=== PATIENT | male | born 1980 | race Caucasian/White ===

== ENCOUNTER → 2017-11-24 | Outpatient (CLI) | payer MEDICAID ==
[~2017-11-24] VITALS: Ht 177.8 cm; Wt 83.0 kg
[~2017-11-24] MED LIST: HYDR-565 PO; NO HOME MEDS
[2017-11-24 14:17] VITALS: BP 137/80
== END | disposition home or self-care (01) ==
LOC: ORTHO 13:55
PROVIDERS: ATTEND Nurse Practitioner Family
DX: S52.591A Other fractures of lower end of right radius, initial encounter for closed fracture (principal); S52.611A Displaced fracture of right ulna styloid process, initial encounter for closed fracture
CPT/HCPCS: 99213; A4590

== ENCOUNTER 2017-12-12 13:54 | Outpatient (CLI) | payer MEDICAID ==
[~2017-12-12] VITALS: Ht 177.8 cm; Wt 78.0 kg
[2017-12-12 13:48] VITALS: BP 131/73
[~2017-12-12 13:54] MED LIST changes: -HYDR-565 PO
== END 2017-12-12 15:13 | disposition home or self-care (01) ==
LOC: ORTHO 13:54
PROVIDERS: ATTEND Nurse Practitioner Family
DX: S52.501G Unspecified fracture of the lower end of right radius, subsequent encounter for closed fracture with delayed healing (principal); S52.611G Displaced fracture of right ulna styloid process, subsequent encounter for closed fracture with delayed healing; F17.210 Nicotine dependence, cigarettes, uncomplicated; Z56.0 Unemployment, unspecified; Z59.0 Homelessness; W01.0XXD Fall on same level from slipping, tripping and stumbling without subsequent striking against object, subsequent encounter
CPT/HCPCS: 73110; 99213; A4590

== ENCOUNTER 2017-12-28 10:00 | Outpatient (CLI) | payer MEDICAID ==
[2017-12-28 09:59] VITALS: BP 108/78
== END 2017-12-28 10:34 | disposition home or self-care (01) ==
LOC: ORTHO 10:00
PROVIDERS: ATTEND Nurse Practitioner Family
DX: S52.591G Other fractures of lower end of right radius, subsequent encounter for closed fracture with delayed healing (principal); S52.611G Displaced fracture of right ulna styloid process, subsequent encounter for closed fracture with delayed healing; F17.210 Nicotine dependence, cigarettes, uncomplicated; Z56.0 Unemployment, unspecified; Z59.0 Homelessness; W01.0XXD Fall on same level from slipping, tripping and stumbling without subsequent striking against object, subsequent encounter
CPT/HCPCS: 73100

== ENCOUNTER 2018-02-06 14:07 | Outpatient (CLI) | payer MEDICAID ==
[2018-02-06 14:12] VITALS: BP 107/77
== END 2018-02-06 14:40 | disposition home or self-care (01) ==
LOC: ORTHO 14:07
PROVIDERS: ATTEND Nurse Practitioner Family
DX: S52.591D Other fractures of lower end of right radius, subsequent encounter for closed fracture with routine healing (principal); S52.611D Displaced fracture of right ulna styloid process, subsequent encounter for closed fracture with routine healing; F17.210 Nicotine dependence, cigarettes, uncomplicated; Z56.0 Unemployment, unspecified; Z59.0 Homelessness; W01.0XXD Fall on same level from slipping, tripping and stumbling without subsequent striking against object, subsequent encounter
CPT/HCPCS: 73100; 99213

== ENCOUNTER 2024-07-20 13:33 | Emergency (ER) | payer MEDICAID ==
[~2024-07-20] VITALS: Ht 182.9 cm; Wt 84.9 kg
[2024-07-20 13:50] VITALS: BP 128/73; PULSE 97; RESP 18; O2SAT 96
--- NOTE | 2024-07-20 14:00 | Physician Documentation ---
HPI ~ General Chief Complaint: Tooth Problem Stated Complaint: TOOTH ABSCESS Time Seen by MD: 13:55 Primary Medical Doctor: NONE History of Present Illness HPI Comment Patient is seen today with complaints of dental pain of his left lower incisor. Patient complains of swelling. Patient states symptoms started 3-4 days ago. Patient admits to multiple dental fractures and cavities and caries. Patient denies any fever or chills. Patient has no other concern or complaint at this t himanshu. Medication Reconciliation Allergies: Coded Allergies: No Known Allergies (Unverified , 05/25/10) Miscellaneous Medications Home Med List (No Home Medications), (Reported) Past Medical History Past Medical History: Extremity Fracture Past Surgical History: orthopedic surgeries Alcohol Use: None Drug Use: none Lives with: Spouse Lives In: Homeless Occupation: unemployed Review of Systems Constitutional: Denies: chills, fever, weakness Eyes: Denies: pain, blurred vision ENT: Denies: ear pain, nose pain, throat pain, mouth pain Respiratory: Denies: cough, shortness of breath Cardiovascular: Denies: chest pain, palpitations Gastrointestinal: Denies: abdominal pain, nausea, vomiting Genitourinary: Denies: burning, dysuria Male Genitalia: Denies: penile discharge, testicular pain Neurological: Denies: headache, dizziness Musculoskeletal: Denies: pain, swelling Integumentary: Denies: rash, lesions Allergic/Immunologic: Denies: hives, itching Hematologic/Lymphatic: Denies: no symptoms reported Psychiatric: Denies: depression, anxiety Physical Exam Vital Signs: Temperature: 98.3, Source: Temporal, Heart Rate: 97, Respiratory Rate: 18, BP: 128/73, Pulse Oximetry: 96, Weight: 84.900 Physical Exam General: Awake and Alert, no acute distress. HEENT: Patient on exam does have swelling of the lower gums on the left side as well as left lower jaw swelling. I do not appreciate any periapical abscess at this time. Conjunctiva pink, Sclera clear, Mucus Membranes moist. Neck: Supple without masses and tenderness. Resp: Unlabored. Lungs clear to auscultation bilaterally. Heart: Regular Rate and rhythm, normal S1 and S2 without murmur, rub or gallop. Extremities: No cyanosis,clubbing or edema. Skin: Warm and Dry. Progress Results/Orders Results/Orders Vital Signs 07/20/24 13:50 Temp 98.3 Pulse 97 Resp 18 B/P (MAP) 128/73 Pulse Ox 96 Medical Decision Making Findings Patient is seen today with complaints of dental pain of his left lower incisor. Patient complains of swelling. Patient states symptoms started 3-4 days ago. Patient admits to multiple dental fractures and cavities and caries. Patient denies any fever or chills. Patient has no other concern or complaint at this time. Patient given dose of ibuprofen 800 mg and Tylenol 975 mg by mouth in the ED today along with amoxicillin 1000 mg by mouth in the ED today. Prescriptions of the same medications were sent to patient's pharmacy. Patient will follow up with dentist as soon as possible. Return to ED with any worsening, concerning or changing symptoms. Departure Disposition: 01 HOME / SELF CARE / HOMELESS Impression: Primary Impression: Dental abscess Condition: Improved Discharge Instructions: Dental Abscess Additional Instructions: Patient given dose of ibuprofen 800 mg and Tylenol 975 mg by mouth in the ED today along with amoxicillin 1000 mg by mouth in the ED today. Prescriptions of the same medications were sent to patient's pharmacy. Patient will follow up with dentist as soon as possible. Return to ED with any worsening, concerning or changing symptoms. Referrals: NO PRIMARY CARE PROVIDER (PCP) Prescriptions Amoxicillin Trihydrate (Amoxicillin) 875 Mg Tablet 1 TAB PO Q12H for 10 Days, #20 TAB Prov: JOSE D ZIMMER 07/20/24 Acetaminophen (Tylenol Extra Strength) 500 Mg Tablet 2 TAB PO Q6H PRN PRN for pain or fever for 7 Days, #56 TAB Prov: JOSE D ZIMMER 07/20/24 Ibuprofen (Ibuprofen) 800 Mg Tablet 1 TAB PO Q8H for pain for 10 Days, #30 TAB 0 Refills Prov: JOSE D ZIMMER 07/20/24 Signature Scribe Signature: No scribe Attestation: No scribe JOSE D ZIMMER July 20, 2024 14:00
[2024-07-20] MEDS ORDERED: ACET-1025 PO (14:01)
[2024-07-20] MEDS ORDERED: IBUP-1986 PO (14:01)
[2024-07-20] MEDS ORDERED: AMOX875T10 PO (14:01)
[2024-07-20] MEDS: amoxicillin 250mg capsule PO STA (14:20)
[2024-07-20] MEDS: ibuprofen tablet 400 MG TABLET PO ONE (14:20)
[2024-07-20] MEDS: acetaminophen 325mg tablet PO STA (14:20)
[2024-07-20 14:27] VITALS: TEMP 98.3
== END 2024-07-20 14:28 | disposition home or self-care (01) ==
LOC: ER 13:34
DX: K04.7 Periapical abscess without sinus (principal); K02.9 Dental caries, unspecified; Z98.890 Other specified postprocedural states; Z56.0 Unemployment, unspecified; Z59.00 Homelessness unspecified
CPT/HCPCS: 99284